=== PATIENT | male | born 1950 | race Two or more races ===

== ENCOUNTER 2019-01-03 13:07 | Outpatient (CLI) | payer MEDICARE ==
[~2019-01-03 13:07] MED LIST: AMBIEN10 M1 ORAL; AMIODARONE HCL400 M1 ORAL; ASPIRIN325 MG ORAL; LISINOPRIL10 MG ORAL; METOPROLOL TART25 MG ORAL; PRILOSEC10 MG ORAL; REGLAN10 MG ORAL
[2019-01-03] MEDS ORDERED: LOSARTAN POTASS50 MG ORAL (14:31)
[2019-01-03] MEDS ORDERED: MAGNESIUM OXID400 M1 ORAL (14:31)
[2019-01-03] MEDS ORDERED: METOPROLOL SUCC25 MG ORAL (14:31)
[2019-01-03 15:11] VITALS: BP 139/79
--- NOTE | 2019-01-03 22:30 | Consultation ---
DATE OF CONSULTATION: 01/03/2019 CHIEF COMPLAINT: Rectal bleeding, chronic GERD, need for revisit screening colonoscopy. HISTORY OF PRESENT ILLNESS: This is a very pleasant 68-year-old male with past medical history of diverticulosis, last colonoscopy over 5 years ago, was referred to us for a screening colonoscopy. The patient also complained of chronic GERD, to be seen by sourcing analyst, Dr. Carbajal. The patient was told that the chest pain is not from cardiac origin and was referred to us for possible endoscopy to rule out the GI source. Also, the patient suffers from rectal bleeding and hemorrhoids. According to her, he has been using some steroid cream that helps him a little bit, but most of the hemorrhoids are outside, painful, itching, and causing pain. PAST MEDICAL HISTORY: 1. Hemorrhoids. 2. Diverticulosis. 3. Constipation. 4. Coronary artery disease. 5. Hypertension. MEDICATIONS: Please see medication reconciliation list. ALLERGIES: No known allergies. SOCIAL HISTORY: The patient denies any tobacco, alcohol, or drug abuse. FAMILY HISTORY: Noncontributory. REVIEW OF SYSTEMS: A 10-point review of systems was performed and pertinent positives in HPI. PHYSICAL EXAMINATION: VITAL SIGNS: Temperature 98.8, blood pressure is 139/79, pulse 72, and respirations 20. HEENT: Normocephalic and atraumatic. Sclerae anicteric. NECK: Supple. No lymphadenopathy. CARDIOVASCULAR: Regular rate and rhythm. Plus S1 and S2. No obvious murmur. LUNGS: Clear to auscultation bilaterally. ABDOMEN: Positive bowel sounds. Soft and nontender. No rebound. No guarding. No peritoneal sign. EXTREMITIES: No cyanosis. No clubbing. No edema. ASSESSMENT AND PLAN: 1. Screening colonoscopy. The patient was scheduled for next week. 2. Chronic GERD. At this time, the patient was also scheduled for endoscopy next week to evaluate. 3. Hemorrhoidal bleeding and rectal pain. The patient was given a steroid cream sitz bath. The patient was also given MiraLAX 17 g p.o. daily for chronic constipation. We will re-examine the patient on the procedure day and see if the patient can benefit from banding of the hemorrhoids. I want to thank Dr. Denson for this kind referral. Dayo Shazia Zuluaga DR: NELSON JOB#: [id number] CC: Eliu Denson M.D.; Fax#: [phone]
== END 2019-01-03 15:07 | disposition home or self-care (01) ==
LOC: PAN 13:07
DX: K62.5 Hemorrhage of anus and rectum (principal); K21.9 Gastro-esophageal reflux disease without esophagitis; I11.9 Hypertensive heart disease without heart failure; I25.10 Atherosclerotic heart disease of native coronary artery without angina pectoris; K59.09 Other constipation
CPT/HCPCS: 99212

== ENCOUNTER 2019-01-10 09:31 | Day surgery (SDC) | payer MEDICARE ==
[2019-01-10] VITALS (8 sets, daily range): BP systolic 116–138; BP diastolic 70–82
[~2019-01-10] VITALS: Ht 180.3 cm; Wt 76.2 kg
[~2019-01-10 09:31] MED LIST changes: +LOSARTAN POTASS50 MG ORAL; +LR 1000ml 1,000 ML IVLG SCH; +MAGNESIUM OXID400 M1 ORAL; +METOPROLOL SUCC25 MG ORAL
--- NOTE | 2019-01-10 11:03 | Anethesia Preoperative Eval ---
Anesthesia Pre-op PMH/ROS General Date of Evaluation: Jan 10, 2019 Time of Evaluation: 12:02 Anesthesiologist: Charla Quick CRNA ASA Score: ASA 3 Mallampati Score Class I : Soft palate, uvula, fauces, pillars visible Class II: Soft palate, uvula, fauces visible Class III: Soft palate, base of uvula visible Class IV: Only hard plate visible Mallampati Classification: Class II Surgeon: Margareth Diagnosis: GERD, screening Surgical Procedure: EGD Anesthesia History: none Family History: no anesthesia problems Allergies: Coded Allergies: NO KNOWN ALLERGIES (Verified Allergy, Unknown, 01/12/15) Medications: see eMAR Patient NPO?: Yes NPO Date: Jan 10, 2019 NPO Time: 00:00 Past Medical History Cardiovascular: Reports: HTN, CAD - s/p cardiac cath, angiography 2017, arrhythmia - atrial fibrillation Pulmonary: Denies: asthma, COPD, YING, other Gastrointestinal/Genitourinary: Reports: GERD; Denies: CRI, ESRD, other Neurologic/Psychiatric: Denies: dementia, CVA, depression/anxiety, TIA, other Endocrine: Denies: DM, hypothyroidism, steroids, other HEENT: Reports: [place] (L), [place] (R); Denies: cataract (L), cataract (R), glaucoma, other Hematology/Immune: Denies: anemia, DVT, bleeding disorder, other Musculoskeletal/Integumentary: Denies: OA, RA, DJD, DDD, edema, other PMH Narrative: as noted above PSxH Narrative: tonsillectomy, angiogram Anesthesia Pre-op Phys. Exam Physician Exam Last Vital Signs Date Time Temp Pulse Resp B/P (MAP) Pulse Ox O2 Delivery O2 Flow Rate FiO2 01/10/19 10:30 98.5 64 20 138/81 97 Room Air Constitutional: NAD Neurologic: other - alert & oriented Cardiovascular: RRR Respiratory: CTA Gastrointestinal: S/NT/ND Airway Exam Mallampati Score: Class II MO: full Neck: FROM TMD: 3 FB ROM: full Teeth: intact Dentures: no upper, no lower Anesthesia Pre-op A/P Studies Pre-op Studies: EKG - NSR Risk Assessment & Plan Assessment: ASA 3, ok to proceed Plan: MAC Status Change Before Surgery: No Pre-Antibiotics Given Within 1 Hr of Incision: No Charla Quick CRNA Jan 10, 2019 11:03
[2019-01-10] MEDS ORDERED: Lidocaine 1% MPF 10mg/ml 5ml ONE (12:15)
[2019-01-10] MEDS ORDERED: Propofol 200mg/20ml IV ONE (12:15)
--- NOTE | 2019-01-10 12:15 | Short Stay Surgery H&P ---
History of Present Illness History of Present Illness Chief Complaint see recent office note HPI Eros Daniel is a 68 year old male who was admitted on for Gerd And Screening Patient History Allergies: Coded Allergies: NO KNOWN ALLERGIES (Verified Allergy, Unknown, 01/12/15) Medication History Scheduled Losartan Potassium* (Losartan Potassium*), 100 MG ORAL DAILY, (Reported) Magnesium Oxide (Magnesium Oxide), 400 MG ORAL DAILY, (Reported) Metoprolol Succinate* (Metoprolol Succinate*), 25 MG ORAL DAILY, (Reported) Discontinued Medications Amiodarone Hcl* (Amiodarone Hcl*), 200 MG ORAL DAILY, (Reported) Discontinued Reason: MD discontinued med Aspirin* (Aspirin*), 325 MG ORAL DAILY, (Reported) Discontinued Reason: MD discontinued med Lisinopril* (Lisinopril*), 10 MG ORAL DAILY, (Reported) Discontinued Reason: MD discontinued med Metoclopramide Hcl* (Reglan*), 10 MG ORAL NEEDED, (Reported) Discontinued Reason: MD discontinued med Metoprolol Tartrate* (Metoprolol Tartrate*), 25 MG ORAL EVERY 12 HOURS, ( Reported) Discontinued Reason: MD discontinued med Omeprazole (Prilosec), 10 MG ORAL DAILY, (Reported) Discontinued Reason: MD discontinued med Zolpidem Tartrate* (Ambien*), 10 MG ORAL HS PRN for Insomnia, (Reported) Discontinued Reason: MD discontinued med Physical Exam Vital Signs Last Vital Signs Date Time Temp Pulse Resp B/P (MAP) Pulse Ox O2 Delivery O2 Flow Rate FiO2 01/10/19 10:30 98.5 64 20 138/81 97 Room Air Plan Attestation Are the patient's medical conditions optimized for surgery? Dayo Zuluaga MD Jan 10, 2019 12:15
--- NOTE | 2019-01-10 12:15 | Pre-Procedure Note/Attestation ---
Pre-Procedure Note/Attestation Complete Prior to Procedure Planned Procedure: not applicable Procedure Narrative: esophagogastroduodenoscopy and colonoscopy Indications for Procedure Pre-Operative Diagnosis: screening colon, GERD Attestation I attest that I discussed the nature of the procedure; its benefits; risks and complications; and alternatives (and the risks and benefits of such alternatives ), prior to the procedure, with the patient (or the patient's legal account development representative). I attest that, if there was a reasonable possibility of needing a blood transfusion, the patient (or the patient's legal account development representative) was given the [facility] standardized written summary, pursuant to the [place] [employer] Blood Safety Act ([place] Health and Safety Code # 1645, as amended). I attest that I re-evaluated the patient just prior to the surgery and that there has been no change in the patient's H&P, except as documented below: Dayo Zuluaga MD Jan 10, 2019 12:15
--- NOTE | 2019-01-10 12:33 | Endoscopy Procedure Note ---
Endoscopy Procedure Note General Indication for Procedure: screening colon, GERD Procedures Performed: EGD, colonoscopy Operative Findings/Diagnosis: gastritis, hemorrhoids Specimen: yes Pt Tolerated Procedure Well: Yes Estimated Blood Loss: none Anesthesia Anesthesiologist: roberto carlos Anesthesia: MAC Inserted Devices Implant(s) used?: No Quality Quality of Bowel Preparation: Good Did scope reach the cecum?: Yes Was there any complications?: No GI Core Measures 50 yrs or older w/o bx or poly: No 10yrs. F/U recommended: Yes If not recommended, why?: Above average risk 18 years or older w/prev. colo: Yes <3yrs. since last colonoscopy: No Dayo Zuluaga MD Jan 10, 2019 12:33
--- NOTE | 2019-01-10 13:14 | Immediate Post-Op Evaluation ---
Immediate Post-Op Evalulation Immediate Post-Op Evalulation Procedure: EGD, colonoscopy Date of Evaluation: Jan 10, 2019 Time of Evaluation: 13:09 IV Fluids: LR 500 ml Blood Pressure Systolic: 116 Blood Pressure Diastolic: 70 Pulse Rate: 56 Respiratory Rate: 19 O2 Sat by Pulse Oximetry: 100 Temperature (Fahrenheit): 98.6 Pain Score (1-10): 0 Nausea: No Vomiting: No Complications none Patient Status: awake, patent Hydration Status: adequate Given Within 1 Hr of Incision: Charla Arnold CRNA Jan 10, 2019 13:14
--- NOTE | 2019-01-10 13:21 | 48 Hour Post Anesthesia Eval ---
Post Anesthesia Evaluation Procedure: EGD, colonoscopy Date of Evaluation: Jan 10, 2019 Time of Evaluation: 13:20 Blood Pressure Systolic: 126 0: 72 Pulse Rate: 58 Respiratory Rate: 22 Temperature (Fahrenheit): 98.7 O2 Sat by Pulse Oximetry: 100 Airway: patent Nausea: No Vomiting: No Pain Intensity: 0 Hydration Status: adequate Cardiopulmonary Status: stable Mental Status/LOC: patient returned to baseline Follow-up Care/Observations: per GI Post-Anesthesia Complications: none Follow-up care needed: N/A Charla Quick CRNA Jan 10, 2019 13:21
--- NOTE | 2019-01-10 16:30 | Procedure Note ---
DATE OF PROCEDURE: 01/10/2019 SURGEON: Dayo Zuluaga M.D. PROCEDURE: Upper endoscopy with biopsy and colonoscopy. ANESTHESIA: Per Charla GARCIA. INSTRUMENT: Olympus adult flexible upper scope and colonoscope. INDICATIONS: 1. Screening colonoscopy evaluation. 2. Abdominal pain. 3. Epigastric pain. 4. GERD. The procedure, risks, benefits, and possible consequences, including hemorrhage, aspiration, perforation and infection, and alternative treatments, were explained to the patient/legal guardian by Dr. Dayo Zuluaga and the patient/legal guardian understood and accepted these risks. PROCEDURE IN DETAIL: After informed consent was obtained and the patient was adequately sedated, Olympus upper endoscope was advanced from the mouth into second portion of the duodenum and retroflexion was performed in the stomach. The patient has evidence of diffuse gastritis. Random biopsy from antrum was obtained to rule out H. pylori infection. The patient also had evidence of two large inlet patches in the upper esophagus. The rest of the examination grossly within normal limits. At this time, the scope was retrieved and the patient was turned over for colonoscopy. First rectal examination was performed, which was normal. Then, the scope was advanced from the rectum into the cecum, then subsequently to terminal ileum. Quality of prep was very good. The patient has significant diverticulosis in the left colon, otherwise normal colonoscopy examination. No polyp was seen. Retroflexion of rectum showed evidence of internal hemorrhoids. SUMMARY OF FINDINGS: 1. Gastritis. 2. Inlet patches x2. 3. Diverticulosis. 4. Internal hemorrhoids. RECOMMENDATIONS: 1. Follow up biopsy results and treat accordingly. 2. We recommend repeat colonoscopy in 5 years. Dayo Zuluaga M.D. DR: CHERELLE JOB#: [id number] CC:
== END 2019-01-10 14:10 | disposition home or self-care (01) ==
LOC: GAS 09:31
DX: Z12.11 Encounter for screening for malignant neoplasm of colon (principal); R10.13 Epigastric pain; K21.9 Gastro-esophageal reflux disease without esophagitis; K64.8 Other hemorrhoids; Z79.899 Other long term (current) drug therapy; I11.9 Hypertensive heart disease without heart failure; I25.10 Atherosclerotic heart disease of native coronary artery without angina pectoris; K29.50 Unspecified chronic gastritis without bleeding
CPT/HCPCS: 43239; G0121; J2704; 94003; 94150

== ENCOUNTER 2019-09-05 12:50 | Outpatient (CLI) | payer MEDICARE ==
[~2019-09-05 12:50] MED LIST changes: -LR 1000ml 1,000 ML IVLG SCH
[2019-09-05 13:00] VITALS: BP 136/73
--- NOTE | 2019-09-05 14:53 | General Progress Note ---
Assessment/Plan Assessment/Plan: SUMMARY OF FINDINGS: 1. Gastritis. 2. Inlet patches x2. 3. Diverticulosis. 4. Internal hemorrhoids. abd pain ? gallstones ppi low dose linzess RTC one week Subjective ROS Limited/Unobtainable: Yes Allergies: Coded Allergies: NO KNOWN ALLERGIES (Verified Allergy, Unknown, 01/12/15) Objective General Appearance: alert EENT: normal ENT inspection Neck: supple, normal inspection Cardiovascular: normal rate Respiratory/Chest: lungs clear Abdomen: normal bowel sounds, non tender, soft Dayo uZluaga MD September 05, 2019 14:53
== END 2019-09-05 14:50 | disposition home or self-care (01) ==
LOC: PAN 12:50
DX: K29.70 Gastritis, unspecified, without bleeding (principal); K57.90 Diverticulosis of intestine, part unspecified, without perforation or abscess without bleeding; K64.8 Other hemorrhoids; R10.9 Unspecified abdominal pain
CPT/HCPCS: 99212

== ENCOUNTER → 2019-09-09 | Outpatient (CLI) | payer MEDICARE ==
--- NOTE | 2019-09-09 12:37 | Diagnostic Imaging Report ---
EXAM: ULTRASOUND US ABD Complete CLINICAL HISTORY: Abdominal pain. COMPARISON: None TECHNIQUE: Ultrasound examination of the abdomen includes grayscale images, and color and spectral doppler analysis. FINDINGS: There is a small cyst noted within the left lobe liver approximately 1.7 x 1.7 cm. Other smaller subcentimeter cysts noted. There is splenomegaly.. The gallbladder is without sludge or stone. Common bile duct measures 4 mm. The pancreas is unremarkable to the extent visualized. There is a cyst at the lower pole of the right kidney. No hydronephrosis seen bilaterally. Aorta and cava are poorly visualized due to bowel gas. IMPRESSION: SEVERAL HEPATIC CYSTS. SPLENOMEGALY. RIGHT RENAL CYST.
== END | disposition home or self-care (01) ==
LOC: ULS 09:13
DX: R10.9 Unspecified abdominal pain (principal); K76.89 Other specified diseases of liver; R16.1 Splenomegaly, not elsewhere classified; N28.1 Cyst of kidney, acquired
CPT/HCPCS: 76700

== ENCOUNTER 2019-09-12 11:17 | Outpatient (CLI) | payer MEDICARE ==
--- NOTE | 2019-09-12 11:52 | General Progress Note ---
Assessment/Plan Assessment/Plan: Assessment/Plan Assessment/Plan: SUMMARY OF FINDINGS: 1. Gastritis. 2. Inlet patches x2. 3. Diverticulosis. 4. Internal hemorrhoids. abd pain constipation us reviewed ordered CT cont ppi low dose linzess>> insurance did not approve add miralax RTC one week Subjective ROS Limited/Unobtainable: Yes Allergies: Coded Allergies: NO KNOWN ALLERGIES (Verified Allergy, Unknown, 01/12/15) Objective General Appearance: alert EENT: normal ENT inspection Neck: supple Cardiovascular: normal rate Respiratory/Chest: decreased breath sounds Abdomen: normal bowel sounds, non tender, soft Extremities: non-tender Dayo Zuluaga MD September 12, 2019 11:52
[2019-09-12 15:00] VITALS: BP 126/70
== END 2019-09-12 13:17 | disposition home or self-care (01) ==
LOC: PAN 11:17
DX: R10.9 Unspecified abdominal pain (principal); K29.70 Gastritis, unspecified, without bleeding; K57.90 Diverticulosis of intestine, part unspecified, without perforation or abscess without bleeding; K64.8 Other hemorrhoids; K59.00 Constipation, unspecified
CPT/HCPCS: 99212